=== PATIENT | female | born 1985 | race Hispanic/Latino ===

== ENCOUNTER 2017-10-23 09:25 | Emergency (ER) | payer SELFPAY ==
[2017-10-23] MEDS ORDERED: CHLORHEXIDINE GLUCONATE 4 % 15 ML UD TOP ONE (09:33)
[2017-10-23 09:38] VITALS: TEMP 98.3
[2017-10-23] MEDS ORDERED: LIDOCAINE 1% 10 ML VIAL INJ ONE (09:38)
[2017-10-23] MEDS ORDERED: TETANUS,DIPHTHERIA,PERTUSSIS 1 EA SYG IM ONE (10:04)
[2017-10-23] MEDS ORDERED: AMOXICILLIN & POT CLAVULANATE 875 MG TAB PO ONE (10:07)
--- NOTE | 2017-10-23 10:09 | ED.PDOC ---
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 The dog was a puppy and came up and bit her leg grabbing awning causing a laceration. Patient denies any fever, chills, nausea or vomiting. The incident occurred directly before coming. Patient is otherwise healthy beyond a diagnosis of asthma that is well controlled. She does smoke but doesn't drink or take drugs. She has not taken nssd-gth-hykiheb medications and last alcohol use was one beer yesterday. Timing/Duration: momentarily Severity: mild Improving Factors: nothing Worsening Factors: nothing Associated Symptoms: denies symptoms Allergies/Adverse Reactions: Allergies NO KNOWN ALLERGY Allergy (Verified 10/23/17 09:32) Home Medications: Ambulatory Orders Amoxicillin & Pot Clavulanate [Augmentin Tab] 875 mg PO BID 10 Days #20 tab Review of Systems - Review of Systems Constitutional: States: no symptoms reported. Denies: chills, fever EENTM: States: no symptoms reported Respiratory: States: no symptoms reported Cardiology: States: no symptoms reported Gastrointestinal/Abdominal: States: no symptoms reported Genitourinary: States: no symptoms reported Past Medical History (General) - Patient Medical History Hx Seizures: No Hx Stroke: No Hx Dementia: No Hx Asthma: Yes Hx of COPD: No Hx Cardiac Disorders: No Hx Congestive Heart Failure: No Hx Pacemaker: No Hx Hypertension: No Hx Thyroid Disease: No Hx Diabetes: No Hx Gastroesophageal Reflux: No Hx Renal Disease: No Hx Cancer: No Hx of HIV: No Hx Hepatitis C: No Hx MRSA: No - Vaccination History Hx Tetanus, Diphtheria Vaccination: No Hx Influenza Vaccination: No Hx Pneumococcal Vaccination: No - Social History Hx Tobacco Use: Yes Hx Chewing Tobacco Use: No Hx Alcohol Use: Yes Hx Substance Use: Yes Hx Substance Use Treatment: Yes Hx Depression: Yes Hx Physical Abuse: No Hx Emotional Abuse: No Hx Suspected Abuse: No - Female History Patient : No Family Medical History - Family History Mother Family History: No Known Living Status: Still Living Physical Exam - Physical Exam General Appearance: No apparent distress Respiratory: chest non-tender, lungs clear, normal breath sounds, no respiratory distress Cardiovascular/Chest: normal peripheral pulses, regular rate, rhythm, no edema, no murmur Gastrointestinal/Abdominal: normal bowel sounds, non tender, soft Extremity: other - patient's right leg at the ankle has a 1.5 cm laceration through to the subcuticular tissue patient has good distal pulses with normal sensation and full range of motion at the foot and ankle. Progress - Progress Progress: 10/23/17 10:09 on arrival police was here to take information. Patient is sure that she does know where the house is where the dog is located the animal services should be able to locate and test the animal. He was a puppy and industrial cleaner did state that he did not have his immunizations at this time. Patient does understand the importance of follow-up with animal services to make sure that rabies status is established and to get injections if necessary. Although this was a bite it did actually cause a laceration down to septic or tissue and so was best repaired. Tetanus shot and Augmentin was given. Procedures - Laceration/Wound Repair Right Ankle Wound Length (cm): 1.5 Wound's Depth, Shape: superficial Wound Explored: contaminated Betadine Prep?: Yes Anesthesia: 1% Lidocaine Volume Anesthetic (cc's): 4 Wound Debrided: moderate Wound Repaired With: sutures Suture Size/Type: 3:0, prolene Number of Sutures: 2 Layer Closure?: No Departure - Departure Clinical Impression: Laceration Dog bite Qualifiers: Encounter type: initial encounter Qualified Code(s): W54.0XXA - Bitten by dog, initial encounter Disposition: Discharge to Home or Self Care Condition: Good Departure Forms: ED Discharge - Pt. Copy, Patient Portal Self Enrollment Instructions: DI for Laceration Repair, DI for Laceration Repair -- Simple Diet: regular diet Home Medications: Ambulatory Orders Amoxicillin & Pot Clavulanate [Augmentin Tab] 875 mg PO BID 10 Days #20 tab Additional Instructions: patient is to return to ER for temp greater than 100.5, redness, swelling, or purulence. Patient is to make sure the animal services contact her or she contact them in the next 2 days. Patient should follow-up with her PCP in 7-10 days for suture removal. [id number] Motrin and Tylenol for pain
[2017-10-23 10:34] VITALS: BP 112/71; O2SAT 94
== END 2017-10-23 10:34 | disposition home or self-care (01) ==
LOC: ER 09:25
DX: S91.051A Open bite, right ankle, initial encounter (principal); J45.909 Unspecified asthma, uncomplicated; F17.210 Nicotine dependence, cigarettes, uncomplicated; Z23 Encounter for immunization; W54.0XXA Bitten by dog, initial encounter; Y92.89 Other specified places as the place of occurrence of the external cause